=== PATIENT | female | born 1965 | race Caucasian/White ===

== ENCOUNTER 2018-06-11 18:46 | Emergency (ER) | payer OTHER ==
[~2018-06-11] VITALS: Ht 170.2 cm; Wt 3.0 kg
[2018-06-11] MEDS ORDERED: TUSSICAPS ER 10/8MG CAPSULE PO ONE (20:15)
[2018-06-11] MEDS ORDERED: IPRATROPIUM 0.5MG/ALBUTEROL 2.5MG INH SOL UD 3ML (DUONEB)(J7620) NEB ONE (20:15)
[2018-06-11] MEDS ORDERED: TUSS1SUS2 PO (21:23)
[2018-06-11 21:29] VITALS: BP 133/82
--- NOTE | 2018-06-12 08:41 | REP ---
Chest x-ray: Two views. History: Cough. Chest pain. . Comparison study: No comparison study . Findings: The lungs are well inflated and free of infiltrate. The pleural angles are sharp. The heart size is normal. Pulmonary vasculature is not increased. No significant bony abnormality is seen. Impression: Negative chest x-ray. Electronically Signed by Alen Ferris MD 06/12/2018 08:32 A
== END 2018-06-11 21:31 | disposition home or self-care (01) ==
LOC: M ED 18:46
DX: J06.9 Acute upper respiratory infection, unspecified (principal); E11.9 Type 2 diabetes mellitus without complications; Z88.8 Allergy status to other drugs, medicaments and biological substances